=== PATIENT | female | born 1995 | race Two or more races ===

== ENCOUNTER 2024-08-22 15:54 | Observation (INO) | payer MEDICAID, OTHER ==
[~2024-08-22] VITALS: Ht 154.9 cm; Wt 54.4 kg
--- NOTE | 2024-08-22 16:45 | DVH ---
LIMITED OB ULTRASOUND > 14 WKS: HISTORY: abd pain TECHNIQUE: Multiple real-time grayscale images of the gravid uterus with duplex Doppler color flow an d M-mode spectral analysis. TRANSDUCER: Transabdominal FINDINGS: IUP single live fetus at 27 weeks 4 days based on composite averages of the BPD, head circumference, abdominal circumference and femur length Estimated weight not calculated heart rate 150 beats per minute MVP: 4.2 cm Cervix 3.01 cm Cephalic Presentation Anterior Grade 1 Placenta without previa or abruption. IMPRESSION: 1. IUP single live fetus at 27 weeks 4 days AUA corresponding to an BRENNA of 11/17/2024. 2. FHR: 150 beats per minute
[2024-08-22] MEDS: TERBUTALINE SULFATE 1 MG/ML 1ML VIAL SC SCH (17:23)
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
== END 2024-08-22 17:52 | disposition home or self-care (01) ==
LOC: LDRP 15:54
PROVIDERS: ADMIT Obstetrics & Gynecology; ATTEND Obstetrics & Gynecology
DX: O60.02 Preterm labor without delivery, second trimester (principal); Y08.89XA Assault by other specified means, initial encounter; Y93.89 Activity, other specified; Y92.89 Other specified places as the place of occurrence of the external cause; Y99.8 Other external cause status; Z3A.27 27 weeks gestation of pregnancy
CPT/HCPCS: 59025; 76815; 81002; 96372; G0378; J3105

== ENCOUNTER 2024-10-08 11:15 | Observation (INO) | payer MEDICAID ==
[2024-10-08] MEDS ORDERED: PREN-96 PO (12:50)
--- NOTE | 2024-10-08 13:00 | DVH ---
CLINICAL HISTORY: nuchal cord COMPARISON: Prior ultrasound dated 08/22/2024 TECHNIQUE: biophysical profile was performed. Transabdominal sonographic images of the fetus we re obtained. FINDINGS: The fetus is in cephalic position. heart rate measures 124 BPM. Amniotic fluid index measures 17.1 cm. The placenta is earlier in position without evidence of previa or abruption. Bellows Tester ior accessory placenta also noted. No nuchal cord visualized. BPP profile is an overall score of 8/8, with 2/2 points for breathing, with at least one episode of breathing over a 30 second duration during a 30 minute observation, 2/2 points for m ovements, with 3 or more discrete body or limb movements, 2/2 points for tone, with one or more episodes of extremity extension with return to flexion, or opening and closing of hand, and 2/ 2 points for amniotic fluid, with at least 1 pocket of amniotic fluid that measures 2 cm in 2 perpend icular planes. IMPRESSION: 1. BPP score of 8/8. No nuchal cord visualized. 2. Anterior placenta with smaller posterior accessory placenta
--- NOTE | 2024-10-09 13:11 | DVHDS2 ---
Physician Discharge Progress N Final Diagnosis: NUCHAL [id number] Operations or Procedures: Operations or Procedures NST 34 WKS,SONO Condition on Discharge: Good Disposition: Home Discharge Instructions: Diet: Regular Activity: No Restrictions, As Tolerated Medications: NA Follow Up Care: Specialist: 1W Discharge Statement: "Patient was advised to return to the ER or call 911 if any headaches, dizziness, shortness of breath, chest pain, abdominal pain, bleeding, fevers, or worsening of medical condition. Patient was counseled about treatment plan, medications, possible side effects, patientverbalized understanding. All questions were answered to the best of my ability. This discharge took greater then 30 minutes in planning, reviewing documentation , counseling the patient, and discussing with other team members." Visit Coding OBGYN Date of Service: Oct 09, 2024 Billing Provider: ALONZO GUERRERO DO PORTABLE MACHINE SANDER Common Visit Codes: [id number] INP/OBS CARE (HIGH) PORTABLE MACHINE SANDER Procedure Codes: 32023-85- NON-STRESS TEST ALONZO GUERRERO DO Oct 09, 2024 13:11
== END 2024-10-08 13:02 | disposition home or self-care (01) ==
LOC: LDRP 11:15 → UNDOADMOB 11:15 → LDRP 11:27
PROVIDERS: ADMIT Obstetrics & Gynecology; ATTEND Obstetrics & Gynecology
DX: O69.81X0 Labor and delivery complicated by cord around neck, without compression, not applicable or unspecified (principal); Z3A.34 34 weeks gestation of pregnancy; Z79.899 Other long term (current) drug therapy
CPT/HCPCS: 59025; 76819; 81002; 94760; G0378

== ENCOUNTER 2024-11-17 06:44 | Inpatient (IN) | payer MEDICAID ==
[~2024-11-17] VITALS: Ht 157.5 cm; Wt 57.2 kg
[~2024-11-17 06:44] MED LIST: PREN-96 PO
[2024-11-17] MEDS ORDERED: miSOPROStol 50 MCG per PRE-CUT 1/2 TAB PO PRN (07:30)
[2024-11-17] MEDS ORDERED: BUTORPHANOL TARTRATE 2 MG/1 ML VIAL IV PRN ×2 (07:30)
--- NOTE | 2024-11-17 07:54 | DVHHP2 ---
OB CC & HPI Date Date of Admission: November 17, 2024 Patient Identification: : 1 Para: 0 EDC: November 17, 2024 EGA: 40.0wks Chief Complaints: Reason for admission: induction of labor Indication for induction: other (term ) History of Present Complaints 29yo IUP@40.0wks presents for scheduled IOL for term . Reports tightening of abdomen occasionally, but denies uterine cramping. Denies Ucs/LOF/VB/ROCHE/vision changes/RUQ pain. Endorses +FM. PNC: Routine PNC with Dr. Ramirez at [facility], adequate visits, PNC uncomplicated. HgA1C 4.9%, dating based on 9wk sono not c/w LMP. GBS positive. Past Medical History Cardiac: No pertinent Hx Pulmonary: No pertinent Hx Central Nervous System: No pertinent Hx GI: No pertinent Hx Hemotology/Oncology: No pertinent Hx Hepatobiliary: No pertinent Hx Psychiatric: No pertinent Hx Musculoskeletal: No pertinent Hx Rheumotologic: No pertinent Hx Infectious Disease: No peritnent Hx ENT: No pertinent Hx Renal/: Other (endometrosis) Endocrine: No pertinent Hx Dermatology: No pertinent Hx Past Surgical History: Other (surgery to remove endometrial scarring) OB History OB History Care: Good Care Ultrasounds: Normal mid trimester US Obstetrical Complications: None Medical Complications: None Allergies: Coded Allergies: NO KNOWN ALLERGIES (Unverified , 08/22/24) Home Meds Reported Medications Vit W/ Ferrous Fumara ( One Daily) Daily Tab, 1 TAB PO DAILY, #90 TAB 3 Refills 10/08/24 Current Medications Current Medications Medications (Trade) Dose Ordered Sig/Marshal Route PRN Reason Start Time Stop Time Status Last Admin Lactated Ringer's 1,000 ml @ 125 mls/hr Q8H IV 11/17/24 07:30 Penicillin G Potassium 7021799 units/Dextrose 50 ml @ 100 mls/hr Q4H IV 11/17/24 11:30 Witch Libby (Tucks) 1 pad PRN PRN TOP PERINEAL AREA DISCOMFORT 11/17/24 07:30 Sodium Lauryl Sulfate (Phisoderm) 240 ml PRN PRN TOP PERINEAL AREA DISCOMFORT 11/17/24 07:30 Benzocaine (Dermoplast) 1 applic PRN PRN TOP PERINEAL AREA DISCOMFORT 11/17/24 07:30 Butorphanol Tartrate (Stadol Injection) 1 mg Q4HPRN PRN IV MODERATE PAIN (4-6 PAIN SCALE) 11/17/24 07:30 Butorphanol Tartrate (Stadol Injection) 2 mg Q4HPRN PRN IV SEVERE PAIN (7-10 PAIN SCALE) 11/17/24 07:30 Misoprostol (Cytotec) 50 mcg Q4HPRN PRN PO CERVICAL RIPENING 11/17/24 07:30 Lidocaine HCl (Xylocaine) 20 ml ONCE PRN IJ PERINEAL AREA DISCOMFORT 11/17/24 07:30 Family & Social History Family/Social History Past Family/Social History: denies Blood Type: O+ Rubella: immune RPR/VDRL: Negative GBS Status: Positive HBsAG: Negative Review of Systems Constitutional: No symptom reported Ears, Nose, & Throat: No symptom reported Eyes: No symptom reported Pulmonary/Respiratory: No symptom reported Cardiovascular: No symptom reported Gastrointestinal: No symptom reported Genitourinary: No symptom reported Musculoskeletal: No symptom reported Skin: No symptom reported Psychiatric: No symptom reported Endocrine: No symptom reported Hemotologic/Lymphatic: No symptom reported OB Admission Exam Physical Exam Vitals: O: VSS, see CPN EFW by sono today: 3549g, vertex, anterior placenta SVE - 4/70/-2, membrane sweep done with pts consent HEENT: TMs Normal, Fontanelles Normal, Nasal Mucosa Normal, Eyes non-injected, Oropharynx Normal, PERRLA, Moist Membranes, EOMI Heart: Rhythm Normal Lungs: Clear Abdomen: Gravid Extremities: Normal Reflexes: Normal Membranes: Intact Heart Rate: 130's Accelerations: Accelerations Present Decelerations: No Decelerations Freight Booker Variability: Average (6-25) Frequency of Contractions: q2-6 min Intensity: Mild OB Plan Plan Admitting Diagnosis: Induction of labor Plan: Induction Induction Methd: Pitocin protocol (membrane sweep) Other Plan: A: 29yo IUP@40.0wks Induction of Labor Category I EFM Intact Membranes GBS positive P: Admit to L&D Informed consent obtained Discussed risks, benefits, alternatives of IOL with IV pitocin with pt. Pt agrees to POC. Start IV PCN for GBS treatment. monitoring per order Routine labs ordered Pain mgmt PRN Frequent position changes in and out of bed encouraged Limit SVE unless necessary Intrauterine resuscitation PRN Anticipate CNM will consult with Dr. Ramirez PRN Visit Coding OBGYN Date of Service: November 17, 2024 Billing Provider: KENDY VERDUZCO CNM REGISTRY NURSE Common Visit Codes: [id number] INP/OBS CARE (MOD) REGISTRY NURSE Procedure Codes: 04082-68- NON-STRESS TEST KENDY VERDUZCO CNM November 17, 2024 07:54
[2024-11-17] MEDS ORDERED: TERBUTALINE SULFATE 1 MG/ML 1ML VIAL SC PRN (08:00)
--- NOTE | 2024-11-17 08:22 | DVH ---
LIMITED OB ULTRASOUND > 14 WKS: HISTORY: EFW TECHNIQUE: Multiple real-time grayscale images of the gravid uterus with duplex Doppler color flow an d M-mode spectral analysis. TRANSDUCER: Transabdominal. FINDINGS: IUP single live fetus at 38 weeks 1 day based on composite averages of the BPD, head circumference, a bdominal circumference and femur length Estimated weight 3549 grams heart rate 131 beats per minute VICKEY 10.7 cm Cervix not well visualized. Cephalic Presentation Anterior Placenta without previa or abruption. IMPRESSION: IUP single live fetus at 38 weeks 1 day AUA corresponding to an BRENNA of 11/30/2024
[2024-11-17 09:01] LABS: Urine Bacteria None Seen /hpf (None Seen)
[2024-11-17 09:07] LABS: Basophils # (auto) 0.1 10 ^3/uL (0-0.2); Basophils % (auto) 0.9 % (0.0-2.0); Eosinophils # (auto) 0.1 10 ^3/uL (0-0.8); Eosinophils % (auto) 0.6 % (0.0-7.0); Hemoglobin 14.5 g/dL (12.2-16.2); Lymphocytes # (auto) 1.6 10 ^3/uL (0.4-5.4); Lymphocytes % (auto) 16.7 % (10.0-50.0); Mean Corpuscular Hemoglobin 31.6 pg (28.0-32.0); Mean Corpuscular Hgb Conc. 34.4 g/dL (32.0-36.0); Mean Corpuscular Volume 91.7 fL (80.0-100.0); Monocytes # (auto) 0.8 10 ^3/uL (0-1.3); Neutrophils # (auto) 7.2 10 ^3/uL (1.6-8.6); Neutrophils % (auto) 73.8 % (37.0-80.0); Nucleated Red Blood Cells % 0.5 %; Platelet Count (auto) 191 10^3/uL (140-450); Red Blood Cells 4.58 10^6/uL (4.0-5.20); Red Cell Distribution Width 13.7 % (11.8-14.3); White Blood Cell 9.8 10^3/uL (4.4-10.8)
[2024-11-17 09:10] LABS: Urine Blood Negative /uL (Negative); Urine Clarity Turbid (Clear); Urine Color Light-Yellow (Yellow); Urine Protein, UAD Negative (Negative); Urine Specific Gravity 1.012 (1.001-1.035); Urine Squamous Epithelial Cell FEW /hpf (<5); Urine Urobilinogen Normal (Negative); Urine WBC 39 /HPF (0-5); Urine pH 5.5 (5.0-9.0)
[2024-11-17 09:22] LABS: INR 0.89 (0.9-1.15); Partial Thromboplastin Time 26.6 SEC (24.5-34.5); Prothrombin Time 9.5 sec (9.3-11.8)
[2024-11-17 09:23] LABS: Amphetamine Screen, Urine Neg (NEGATIVE); Barbiturate Scree,Urine Neg (NEGATIVE); Benzodiazephine Screen, Urine Neg (NEGATIVE); Cannabinoid Screen, Urine Neg (NEGATIVE); Cocaine Screen, Urine Neg (NEGATIVE); Opiate Scree,Urine Neg (NEGATIVE); Phencyclidine Screen, Urine Neg (NEGATIVE)
[2024-11-17 09:25] LABS: Alanine Aminotransferase 23 U/L (7-40); Albumin 3.9 g/dL (3.2-4.8); Anion Gap 10 (5-15); Aspartate Aminotransferase 29 U/L (13-40); BUN/Creatinine Ratio 18.1 (10.0-20.0); Blood Urea Nitrogen 13 mg/dL (9-23); Calcium 9.6 mg/dL (8.7-10.4); Carbon Dioxide 21 mmol/L (20-31); Chloride 107 mmol/L (98-107); Glucose 77 mg/dL (74-106); Sodium 138 mmol/L (136-145); Total Protein 6.4 g/dL (5.7-8.2)
[2024-11-17 09:26] LABS: Bilirubin, Total 0.8 mg/dL (0.2-1.0)
[2024-11-17 09:27] LABS: Alkaline Phosphatase 146 U/L (46-116)
[2024-11-17] MEDS: DERMOPLAST 60ML BOTTLE TOP PRN (10:01)
[2024-11-17] MEDS: PHISODERM TOP SOLN 240ML BTL TOP PRN (10:01)
[2024-11-17] MEDS: WITCH HAZEL-GLYCERIN PAD TOP PRN (10:01)
[2024-11-17] MEDS: PENICILLIN G POTASSIUM 2,500,000 UNITS in D5W 5% 50 ML IV SCH (11:30)
[2024-11-17] MEDS: PENICILLIN G POT 5MIL/D5 50ML 50 ML IV ONE (11:32)
[2024-11-17] MEDS: LACTATED RINGER'S 1,000 ML IV ONE (11:33)
[2024-11-17] MEDS: LACTATED RINGER'S 1,000 ML IV SCH (11:33)
--- NOTE | 2024-11-17 13:07 | DVHPN2 ---
CNM Labor Progress Note Date and Time Seen Date Seen: November 17, 2024 Time Seen: 12:45 Subjective Patient reports: Feels better Subjective Comment Pt resting in bed post epidural. Pt reports feeling comfortable. Objective Vital Signs VSS, see chart Monitoring Method Monitoring Method: External Heart Rate Heart Rate Baseline: 130 Heart Rate Variability: Moderate Presence of FHR Accelerations: Yes Presence of FHR Decelerations: No Changes in Trends of Patterns: No Are all 5 Components of the FH: Yes Contractions Contractions Frequency: Other (q1-3minutes) Duration of Contraction: 60 Contractions Intensity: Moderate Contractions Resting Tone: Relaxed Membranes Membranes: Intact Vaginal Exam Vag Exam Deferred: Yes (Primary RN VE exam done at 1114: 4/70/-1) Vaginal Exam Presentation: VTX Vaginal Exam Show: Small Medications Medications - Pitocin: Yes (2 mU/hr) Medication - Epidural: Yes Lab Results Lab Results Current Medications Medications (Trade) Dose Ordered Sig/Marshal Start Time Stop Time Status Last Admin Dose Admin Lactated Ringer's 1,000 ml @ 125 mls/hr Q8H 11/17/24 07:30 11/17/24 11:33 125 MLS/HR Penicillin G Potassium 50 ml @ 100 mls/hr ONCE ONCE 11/17/24 07:30 11/17/24 07:59 DC 11/17/24 11:32 100 MLS/HR Penicillin G Potassium [id number] units/Dextrose 50 ml @ 100 mls/hr Q4H 11/17/24 11:30 Witch Libby (Tucks) 1 pad PRN PRN 11/17/24 07:30 11/17/24 10:01 1 PAD Sodium Lauryl Sulfate (Phisoderm) 240 ml PRN PRN 11/17/24 07:30 11/17/24 10:01 240 ML Benzocaine (Dermoplast) 1 applic PRN PRN 11/17/24 07:30 11/17/24 10:01 1 APPLIC Butorphanol Tartrate (Stadol Injection) 1 mg Q4HPRN PRN 11/17/24 07:30 Butorphanol Tartrate (Stadol Injection) 2 mg Q4HPRN PRN 11/17/24 07:30 Misoprostol (Cytotec) 50 mcg Q4HPRN PRN 11/17/24 07:30 11/17/24 07:53 DC Lidocaine HCl (Xylocaine) 20 ml ONCE PRN 11/17/24 07:30 Oxytocin 1,000 ml @ 6 ml/hr Q24H 11/17/24 08:00 Terbutaline Sulfate (Brethine Inj) 0.25 mg ONCE PRN 11/17/24 08:00 Oxytocin 500 ml @ 999 mls/hr Q31M ONCE 11/17/24 08:00 11/17/24 08:30 DC Oxytocin 500 ml @ 125 mls/hr Q4H ONCE 11/17/24 08:30 11/17/24 12:29 DC Lactated Ringer's 1,000 ml @ 1,000 mls/hr Q1H ONCE 11/17/24 09:15 11/17/24 10:14 DC 11/17/24 11:33 1,000 MLS/HR Naloxone HCl (Narcan) 0.2 mg PRN ONCE 11/17/24 09:15 11/17/24 09:20 DC Ephedrine Sulfate (ePHEDrine SULFATE) 10 mg PRN ONCE 11/17/24 09:15 11/17/24 09:20 DC Laboratory Tests Test 11/17/24 08:36 11/17/24 07:30 Range/Units White Blood Count 9.8 4.4-10.8 10^3/uL Red Blood Count 4.58 4.0-5.20 10^6/uL Hemoglobin 14.5 12.2-16.2 g/dL Hematocrit 42.0 36.0-46.0 % Mean Corpuscular Volume 91.7 80.0-100.0 fL Mean Corpuscular Hemoglobin 31.6 28.0-32.0 pg Mean Corpuscular Hemoglobin Concent 34.4 32.0-36.0 g/dL Red Cell Distribution Width 13.7 11.8-14.3 % Platelet Count 191 140-450 10^3/uL Mean Platelet Volume 9.3 6.9-10.8 fL Neutrophils (%) (Auto) 73.8 37.0-80.0 % Lymphocytes (%) (Auto) 16.7 10.0-50.0 % Monocytes (%) (Auto) 8.0 0.0-12.0 % Eosinophils (%) (Auto) 0.6 0.0-7.0 % Basophils (%) (Auto) 0.9 0.0-2.0 % Neutrophils # (Auto) 7.2 1.6-8.6 10 ^3/uL Lymphocytes # (Auto) 1.6 0.4-5.4 10 ^3/uL Monocytes # (Auto) 0.8 0-1.3 10 ^3/uL Eosinophils # (Auto) 0.1 0-0.8 10 ^3/uL Basophils # (Auto) 0.1 0-0.2 10 ^3/uL Nucleated Red Blood Cells 0.5 % Prothrombin Time 9.5 9.3-11.8 sec Prothrombin Time INR 0.89 L 0.9-1.15 Activated Partial Thromboplast Time 26.6 24.5-34.5 SEC Sodium Level 138 136-145 mmol/L Potassium Level 4.0 3.5-5.1 mmol/L Chloride Level 107 98-107 mmol/L Carbon Dioxide Level 21 20-31 mmol/L Anion Gap 10 5-15 Blood Urea Nitrogen 13 9-23 mg/dL Creatinine 0.72 0.550-1.02 mg/dL Glomerular Filtration Rate Calc 117 >90 mL/min BUN/Creatinine Ratio 18.1 10.0-20.0 Serum Glucose 77 74-106 mg/dL Calcium Level 9.6 8.7-10.4 mg/dL Total Bilirubin 0.8 0.2-1.0 mg/dL Aspartate Amino Transferase (AST) 29 13-40 U/L Alanine Aminotransferase (ALT) 23 7-40 U/L Alkaline Phosphatase 146 H 46-116 U/L Total Protein 6.4 5.7-8.2 g/dL Albumin 3.9 3.2-4.8 g/dL Treponema pallidum Antibody Non-reactive Negative Urine Color Light-yellow Yellow Urine Clarity Turbid H Clear Urine pH 5.5 5.0-9.0 Urine Specific [place] 1.012 1.001-1.035 Urine Protein Negative Negative Urine Ketones Negative Negative Urine Blood Negative Negative /uL Urine Nitrite Negative Negative Urine Bilirubin Negative Negative Urine Urobilinogen Normal Negative mg/dL Urine Leukocyte Esterase 3+ Negative /uL Urine RBC <1 0 - 4 /hpf Urine Microscopic WBC 39 H 0-5 /HPF Urine Squamous Epithelial Cells Few <5 /hpf Urine Bacteria None seen None Seen /hpf Urine Glucose Normal Normal mg/dL Urine Opiates Screen Neg NEGATIVE Urine Fentanyl Screen Neg NEGATIVE Urine Barbiturates Screen Neg NEGATIVE Urine Phencyclidine Screen Neg NEGATIVE Urine Amphetamines Screen Neg NEGATIVE Urine Benzodiazepines Screen Neg NEGATIVE Urine Cocaine Screen Neg NEGATIVE Urine Cannabinoids Screen Neg NEGATIVE Assessment Assessment 29yo IUP@40.0wks Induction of Labor Category I EFM Intact Membranes GBS positive Plan Plan P: Continue IOL with IV pitocin per protocol Continue IV PCN for GBS treatment. Continue monitoring Pain mgmt via epidural Frequent position changes in bed encouraged Limit SVE unless necessary Intrauterine resuscitation PRN Anticipate CNM will consult with Dr. Ramirez PRN Plan discussed with: Patient, Spouse Visit Coding OBGYN Date of Service: November 17, 2024 Billing Provider: KENDY VERDUZCO CNM CHRONIC SPECIALIST Common Visit Codes: [id number] INP/OBS CARE(MOD) DENISSE MOTA MDWF November 17, 2024 13:07
[2024-11-17] MEDS: ROPIVACAINE HCL 200 ML ONE (15:51)
[2024-11-17] MEDS: LACT. RINGERS/OXYTOCIN 20UNITS 1,000 ML IV SCH (15:52)
--- NOTE | 2024-11-17 20:43 | DVHPN2 ---
CNM Labor Progress Note Date and Time Seen Date Seen: November 17, 2024 Time Seen: 20:20 Subjective Patient reports: No new complaints Subjective Comment Pt resting comfortably with epidural. Objective Vital Signs VSS, see chart Monitoring Method Monitoring Method: External Heart Rate Heart Rate Baseline: 120 Heart Rate Variability: Moderate Presence of FHR Accelerations: Yes Presence of FHR Decelerations: No Changes in Trends of Patterns: No Are all 5 Components of the FH: Yes Contractions Contractions Frequency: Other (q1-3min) Duration of Contraction: 60 Contractions Intensity: Moderate Contractions Resting Tone: Relaxed Membranes Membranes: Ruptured (AROM at 2022 w/ patient consent; copious amounts of clear fluid) Amniotic Fluid Color: Clear Vaginal Exam Vag Exam Deferred: No Vaginal Exam Dilation: 6 Vaginal Exam Effacement: 80 Vaginal Exam Station: -2 Vaginal Exam Presentation: VTX Vaginal Exam Show: Small Medications Medications - Pitocin: Yes (5mU/hour) Medication - Epidural: Yes Lab Results Lab Results Current Medications Medications (Trade) Dose Ordered Sig/Marshal Start Time Stop Time Status Last Admin Dose Admin Lactated Ringer's 1,000 ml @ 125 mls/hr Q8H 11/17/24 07:30 11/17/24 15:49 125 MLS/HR Penicillin G Potassium 50 ml @ 100 mls/hr ONCE ONCE 11/17/24 07:30 11/17/24 07:59 DC 11/17/24 11:32 100 MLS/HR Penicillin G Potassium [id number] units/Dextrose 50 ml @ 100 mls/hr Q4H 11/17/24 11:30 11/17/24 15:47 100 MLS/HR Lexy Souza (Milesckleonarda) 1 pad PRN PRN 11/17/24 07:30 11/17/24 10:01 1 PAD Sodium Lauryl Sulfate (Phisoderm) 240 ml PRN PRN 11/17/24 07:30 11/17/24 10:01 240 ML Benzocaine (Dermoplast) 1 applic PRN PRN 11/17/24 07:30 11/17/24 10:01 1 APPLIC Butorphanol Tartrate (Stadol Injection) 1 mg Q4HPRN PRN 11/17/24 07:30 Butorphanol Tartrate (Stadol Injection) 2 mg Q4HPRN PRN 11/17/24 07:30 Misoprostol (Cytotec) 50 mcg Q4HPRN PRN 11/17/24 07:30 11/17/24 07:53 DC Lidocaine HCl (Xylocaine) 20 ml ONCE PRN 11/17/24 07:30 Oxytocin 1,000 ml @ 6 ml/hr Q24H 11/17/24 08:00 11/17/24 15:52 6 ML/HR Terbutaline Sulfate (Brethine Inj) 0.25 mg ONCE PRN 11/17/24 08:00 Oxytocin 500 ml @ 999 mls/hr Q31M ONCE 11/17/24 08:00 11/17/24 08:30 DC Oxytocin 500 ml @ 125 mls/hr Q4H ONCE 11/17/24 08:30 11/17/24 12:29 DC Lactated Ringer's 1,000 ml @ 1,000 mls/hr Q1H ONCE 11/17/24 09:15 11/17/24 10:14 DC 11/17/24 11:33 1,000 MLS/HR Naloxone HCl (Narcan) 0.2 mg PRN ONCE 11/17/24 09:15 11/17/24 09:20 DC Ephedrine Sulfate (ePHEDrine SULFATE) 10 mg PRN ONCE 11/17/24 09:15 11/17/24 09:20 DC Laboratory Tests Test 11/17/24 08:36 11/17/24 07:30 Range/Units White Blood Count 9.8 4.4-10.8 10^3/uL Red Blood Count 4.58 4.0-5.20 10^6/uL Hemoglobin 14.5 12.2-16.2 g/dL Hematocrit 42.0 36.0-46.0 % Mean Corpuscular Volume 91.7 80.0-100.0 fL Mean Corpuscular Hemoglobin 31.6 28.0-32.0 pg Mean Corpuscular Hemoglobin Concent 34.4 32.0-36.0 g/dL Red Cell Distribution Width 13.7 11.8-14.3 % Platelet Count 191 140-450 10^3/uL Mean Platelet Volume 9.3 6.9-10.8 fL Neutrophils (%) (Auto) 73.8 37.0-80.0 % Lymphocytes (%) (Auto) 16.7 10.0-50.0 % Monocytes (%) (Auto) 8.0 0.0-12.0 % Eosinophils (%) (Auto) 0.6 0.0-7.0 % Basophils (%) (Auto) 0.9 0.0-2.0 % Neutrophils # (Auto) 7.2 1.6-8.6 10 ^3/uL Lymphocytes # (Auto) 1.6 0.4-5.4 10 ^3/uL Monocytes # (Auto) 0.8 0-1.3 10 ^3/uL Eosinophils # (Auto) 0.1 0-0.8 10 ^3/uL Basophils # (Auto) 0.1 0-0.2 10 ^3/uL Nucleated Red Blood Cells 0.5 % Prothrombin Time 9.5 9.3-11.8 sec Prothrombin Time INR 0.89 L 0.9-1.15 Activated Partial Thromboplast Time 26.6 24.5-34.5 SEC Sodium Level 138 136-145 mmol/L Potassium Level 4.0 3.5-5.1 mmol/L Chloride Level 107 98-107 mmol/L Carbon Dioxide Level 21 20-31 mmol/L Anion Gap 10 5-15 Blood Urea Nitrogen 13 9-23 mg/dL Creatinine 0.72 0.550-1.02 mg/dL Glomerular Filtration Rate Calc 117 >90 mL/min BUN/Creatinine Ratio 18.1 10.0-20.0 Serum Glucose 77 74-106 mg/dL Calcium Level 9.6 8.7-10.4 mg/dL Total Bilirubin 0.8 0.2-1.0 mg/dL Aspartate Amino Transferase (AST) 29 13-40 U/L Alanine Aminotransferase (ALT) 23 7-40 U/L Alkaline Phosphatase 146 H 46-116 U/L Total Protein 6.4 5.7-8.2 g/dL Albumin 3.9 3.2-4.8 g/dL Treponema pallidum Antibody Non-reactive Negative Urine Color Light-yellow Yellow Urine Clarity Turbid H Clear Urine pH 5.5 5.0-9.0 Urine Specific [place] 1.012 1.001-1.035 Urine Protein Negative Negative Urine Ketones Negative Negative Urine Blood Negative Negative /uL Urine Nitrite Negative Negative Urine Bilirubin Negative Negative Urine Urobilinogen Normal Negative mg/dL Urine Leukocyte Esterase 3+ Negative /uL Urine RBC <1 0 - 4 /hpf Urine Microscopic WBC 39 H 0-5 /HPF Urine Squamous Epithelial Cells Few <5 /hpf Urine Bacteria None seen None Seen /hpf Urine Glucose Normal Normal mg/dL Urine Opiates Screen Neg NEGATIVE Urine Fentanyl Screen Neg NEGATIVE Urine Barbiturates Screen Neg NEGATIVE Urine Phencyclidine Screen Neg NEGATIVE Urine Amphetamines Screen Neg NEGATIVE Urine Benzodiazepines Screen Neg NEGATIVE Urine Cocaine Screen Neg NEGATIVE Urine Cannabinoids Screen Neg NEGATIVE Assessment Assessment 29yo IUP@40.0wks Induction of Labor Category I EFM Ruptured amniotic Membranes GBS positive Plan Plan P: Continue IOL with IV pitocin per protocol Continue IV PCN for GBS treatment Continue monitoring Pain mgmt via epidural Frequent position changes in bed encouraged Limit SVE unless necessary Intrauterine resuscitation PRN Anticipate CNM will consult with Dr. Ramirez PRN Plan discussed with: Patient, Spouse Visit Coding OBGYN Date of Service: November 17, 2024 Billing Provider: KENDY VERDUZCO CNM SNAKER DRIVING HORSES Common Visit Codes: [id number] INP/OBS CARE(MOD) DENISSE MOTA MDWF November 17, 2024 20:43
[2024-11-18] VITALS (17 sets, daily range): BP systolic 94–126; BP diastolic 52–97; PULSE 104–127; RESP 14–20; TEMP 97.9–99.2; O2SAT 90–100
[2024-11-18] MEDS: ROPIVACAINE HCL 200 ML ONE (02:30)
[2024-11-18] MEDS ORDERED: ONDANSETRON HCL 4 MG/2 ML VIAL IV PRN ×3 (02:30→13:30)
--- NOTE | 2024-11-18 02:30 | DVHPN2 ---
CNM Labor Progress Note Date and Time Seen Date Seen: November 18, 2024 Time Seen: 02:10 Subjective Subjective Comment Pt feels rectal pressure with UCs and having N/V/shakes. Objective Vital Signs VSS, see CPN Monitoring Method Monitoring Method: External Heart Rate Heart Rate Baseline: 120 Heart Rate Variability: Moderate Presence of FHR Accelerations: Yes Presence of FHR Decelerations: No Changes in Trends of Patterns: No Are all 5 Components of the FH: Yes Contractions Contractions Frequency: Other (q3-4 min) Duration of Contraction: 100 Contractions Intensity: Moderate Contractions Resting Tone: Relaxed Membranes Membranes: Ruptured Amniotic Fluid Color: Clear Vaginal Exam Vag Exam Deferred: No Vaginal Exam Dilation: 7 Vaginal Exam Effacement: 80 Vaginal Exam Station: -1 Vaginal Exam Presentation: VTX Vaginal Exam Show: Moderate Medications Medications - Pitocin: Yes (2 mu) Medication - Epidural: Yes Lab Results Lab Results Current Medications Medications (Trade) Dose Ordered Sig/Marshal Start Time Stop Time Status Last Admin Dose Admin Lactated Ringer's 1,000 ml @ 125 mls/hr Q8H 11/17/24 07:30 11/17/24 23:17 125 MLS/HR Penicillin G Potassium 50 ml @ 100 mls/hr ONCE ONCE 11/17/24 07:30 11/17/24 07:59 DC 11/17/24 11:32 100 MLS/HR Penicillin G Potassium [id number] units/Dextrose 50 ml @ 100 mls/hr Q4H 11/17/24 11:30 11/18/24 01:01 100 MLS/HR Lexy Souza (Tucks) 1 pad PRN PRN 11/17/24 07:30 11/17/24 10:01 1 PAD Sodium Lauryl Sulfate (Phisoderm) 240 ml PRN PRN 11/17/24 07:30 11/17/24 10:01 240 ML Benzocaine (Dermoplast) 1 applic PRN PRN 11/17/24 07:30 11/17/24 10:01 1 APPLIC Butorphanol Tartrate (Stadol Injection) 1 mg Q4HPRN PRN 11/17/24 07:30 Butorphanol Tartrate (Stadol Injection) 2 mg Q4HPRN PRN 11/17/24 07:30 Misoprostol (Cytotec) 50 mcg Q4HPRN PRN 11/17/24 07:30 11/17/24 07:53 DC Lidocaine HCl (Xylocaine) 20 ml ONCE PRN 11/17/24 07:30 Oxytocin 1,000 ml @ 6 ml/hr Q24H 11/17/24 08:00 11/17/24 15:52 6 ML/HR Terbutaline Sulfate (Brethine Inj) 0.25 mg ONCE PRN 11/17/24 08:00 Oxytocin 500 ml @ 999 mls/hr Q31M ONCE 11/17/24 08:00 11/17/24 08:30 DC Oxytocin 500 ml @ 125 mls/hr Q4H ONCE 11/17/24 08:30 11/17/24 12:29 DC Lactated Ringer's 1,000 ml @ 1,000 mls/hr Q1H ONCE 11/17/24 09:15 11/17/24 10:14 DC 11/17/24 11:33 1,000 MLS/HR Naloxone HCl (Narcan) 0.2 mg PRN ONCE 11/17/24 09:15 11/17/24 09:20 DC Ephedrine Sulfate (ePHEDrine SULFATE) 10 mg PRN ONCE 11/17/24 09:15 11/17/24 09:20 DC Laboratory Tests Test 11/17/24 08:36 11/17/24 07:30 Range/Units White Blood Count 9.8 4.4-10.8 10^3/uL Red Blood Count 4.58 4.0-5.20 10^6/uL Hemoglobin 14.5 12.2-16.2 g/dL Hematocrit 42.0 36.0-46.0 % Mean Corpuscular Volume 91.7 80.0-100.0 fL Mean Corpuscular Hemoglobin 31.6 28.0-32.0 pg Mean Corpuscular Hemoglobin Concent 34.4 32.0-36.0 g/dL Red Cell Distribution Width 13.7 11.8-14.3 % Platelet Count 191 140-450 10^3/uL Mean Platelet Volume 9.3 6.9-10.8 fL Neutrophils (%) (Auto) 73.8 37.0-80.0 % Lymphocytes (%) (Auto) 16.7 10.0-50.0 % Monocytes (%) (Auto) 8.0 0.0-12.0 % Eosinophils (%) (Auto) 0.6 0.0-7.0 % Basophils (%) (Auto) 0.9 0.0-2.0 % Neutrophils # (Auto) 7.2 1.6-8.6 10 ^3/uL Lymphocytes # (Auto) 1.6 0.4-5.4 10 ^3/uL Monocytes # (Auto) 0.8 0-1.3 10 ^3/uL Eosinophils # (Auto) 0.1 0-0.8 10 ^3/uL Basophils # (Auto) 0.1 0-0.2 10 ^3/uL Nucleated Red Blood Cells 0.5 % Prothrombin Time 9.5 9.3-11.8 sec Prothrombin Time INR 0.89 L 0.9-1.15 Activated Partial Thromboplast Time 26.6 24.5-34.5 SEC Sodium Level 138 136-145 mmol/L Potassium Level 4.0 3.5-5.1 mmol/L Chloride Level 107 98-107 mmol/L Carbon Dioxide Level 21 20-31 mmol/L Anion Gap 10 5-15 Blood Urea Nitrogen 13 9-23 mg/dL Creatinine 0.72 0.550-1.02 mg/dL Glomerular Filtration Rate Calc 117 >90 mL/min BUN/Creatinine Ratio 18.1 10.0-20.0 Serum Glucose 77 74-106 mg/dL Calcium Level 9.6 8.7-10.4 mg/dL Total Bilirubin 0.8 0.2-1.0 mg/dL Aspartate Amino Transferase (AST) 29 13-40 U/L Alanine Aminotransferase (ALT) 23 7-40 U/L Alkaline Phosphatase 146 H 46-116 U/L Total Protein 6.4 5.7-8.2 g/dL Albumin 3.9 3.2-4.8 g/dL Treponema pallidum Antibody Non-reactive Negative Urine Color Light-yellow Yellow Urine Clarity Turbid H Clear Urine pH 5.5 5.0-9.0 Urine Specific [place] 1.012 1.001-1.035 Urine Protein Negative Negative Urine Ketones Negative Negative Urine Blood Negative Negative /uL Urine Nitrite Negative Negative Urine Bilirubin Negative Negative Urine Urobilinogen Normal Negative mg/dL Urine Leukocyte Esterase 3+ Negative /uL Urine RBC <1 0 - 4 /hpf Urine Microscopic WBC 39 H 0-5 /HPF Urine Squamous Epithelial Cells Few <5 /hpf Urine Bacteria None seen None Seen /hpf Urine Glucose Normal Normal mg/dL Urine Opiates Screen Neg NEGATIVE Urine Fentanyl Screen Neg NEGATIVE Urine Barbiturates Screen Neg NEGATIVE Urine Phencyclidine Screen Neg NEGATIVE Urine Amphetamines Screen Neg NEGATIVE Urine Benzodiazepines Screen Neg NEGATIVE Urine Cocaine Screen Neg NEGATIVE Urine Cannabinoids Screen Neg NEGATIVE Assessment Assessment 29yo IUP@40.1wks Induction of Labor Category I EFM Ruptured amniotic Membranes GBS positive Plan Plan RN to give pt zofran IV Continue IOL with IV pitocin per protocol Continue IV PCN for GBS treatment Continue monitoring Pain mgmt via epidural Frequent position changes in bed encouraged Limit SVE unless necessary Intrauterine resuscitation PRN Dr. Ramirez consulted, Anticipated Plan discussed with: Patient, Spouse, Other (family) Visit Coding OBGYN Date of Service: November 18, 2024 Billing Provider: KENDY VERDUZCO CNM STACK ATTENDANT Common Visit Codes: [id number] INP/OBS CARE(MOD) KENDY VERDUZCO CNM November 18, 2024 02:30
--- NOTE | 2024-11-18 08:47 | DVHPN2 ---
Chief Complaints Patient reports: No new complaints Nursing reports: No new complaints Objective Medications Current Medications Medications (Trade) Dose Ordered Sig/Marshal Route PRN Reason Start Time Stop Time Status Last Admin Ondansetron HCl (Zofran) 4 mg Q4HPRN PRN IV NAUSEA / VOMITING 11/18/24 02:30 Penicillin G Potassium [id number] units/Dextrose 50 ml @ 100 mls/hr Q4H IV 11/17/24 11:30 11/18/24 08:45 Others ve-10cm/0/100% Studies Laboratory Tests 11/17/24 08:36 Test 11/17/24 08:36 Range/Units Serum Glucose 77 74-106 mg/dL Ass/Plan Assessment labor Plan recieved pt at 7am from azy ,pt is compelet at zero station but not pushing well subseq pt is to labor down . Visit Coding OBGYN Date of Service: November 18, 2024 Billing Provider: ALONZO GUERRERO DO SNOWBLOWER MECHANIC Common Visit Codes: [id number] INP/OBS CARE(HIGH) SNOWBLOWER MECHANIC Procedure Codes: 62253-68- NON-STRESS TEST ALONZO GUERRERO DO November 18, 2024 08:47
[2024-11-18] MEDS ORDERED: fentaNYL CITRATE 100 MCG/2 ML VL ONE (11:52)
[2024-11-18] MEDS ORDERED: MIDAZOLAM HCL 2MG/2ML 2ml VIAL (1mg/ml) ONE (11:52)
[2024-11-18] MEDS ORDERED: MORPHINE SULF PF 5 MG/10 ML VIAL ONE (11:52)
[2024-11-18] MEDS ORDERED: LACT. RINGERS/OXYTOCIN 20UNITS 1,000 ML IV ONE (12:00)
[2024-11-18] MEDS: METHYLERGONOVINE MALEATE 0.2 MG/ML AMP IM ONE (12:09)
[2024-11-18] MEDS: ceFAZolin 2 GM/D5W50ml 50 ML IV ONE (12:10)
[2024-11-18] MEDS: CARBOPROST TROMETHAMINE 250 MCG/1ML VIAL IM ONE ×2 (12:21→12:50)
[2024-11-18] MEDS: TRANEXAMIC ACID 20 ML ONE (12:35)
[2024-11-18] MEDS: DIPHENOXYLATE W/ATROPINE 2.5 MG TAB ONE (12:52)
--- NOTE | 2024-11-18 13:02 | DVHHP ---
ADMIT DATE: 11/17/2024 CHIEF COMPLAINT: Arrest of descent, suspect CPD. HISTORY OF PRESENT ILLNESS: The patient is a 29-year-old woman presented with EDC on 11/17, estimated gestational age of 40 weeks, admitted for labor. The patient was initially scheduled for induction. However, she came in labor at 4:00 p.m. Subsequently, the patient was managed by Aussie, board worker. She received Cytotec and Pitocin, dilated to 10 cm; however, presenting part was at 0 station despite adequate contraction. Subsequently, the patient is being taken for primary secondary to CPD, arrest of descent. PAST MEDICAL HISTORY: None. PAST SURGICAL HISTORY: None. SOCIAL HISTORY: None. FAMILY HISTORY: None. OBSTETRIC AND GYNECOLOGIC HISTORY: GBS positive. Primary gravid. REVIEW OF SYSTEMS: Consistent with HPI. PHYSICAL EXAMINATION: VITAL SIGNS: Stable, afebrile. HEENT: Within normal limits. CARDIOVASCULAR: Regular rate and rhythm. LUNGS: Clear to auscultation. BREASTS: Symmetrical, no masses. ABDOMEN: Gravid. Positive heart, estimated weight 7+. PELVIC: 10 cm, 0 station. EXTREMITIES: No clubbing, cyanosis, or edema. IMPRESSION: * Intrauterine at 40 weeks. Arrest of descent. * Suspect CPD. PLAN: Primary low transverse incision. Informed consent obtained. Risks and complications of surgery including infection, bleeding, hematoma formation, injury to bowel, bladder, surrounding organ, possibility of DVT, pulmonary embolism, and risks of anesthesia discussed with the patient. Options reviewed. All the risks and complications discussed with the patient discussed with the patient. All questions answered. The patient fully understands. She wishes to proceed. DO JHONATAN Burnett/JAMES/SARIAH TID: [id number] RECEIPT: [id number]
[2024-11-18] MEDS: LIDOCAINE W/ EPINEPHRINE 1% 20ML VIAL ONE (13:05)
[2024-11-18] MEDS: BUPIVACAINE 0.5% P/F INJ 10 ML VIAL ONE (13:05)
[2024-11-18] MEDS ORDERED: DexAMETHasone SOD PHOS 10MG/1ML VIAL INJ IV PRN (13:30)
[2024-11-18] MEDS ORDERED: hydrALAZINE HCL 20 MG/ML VL IV PRN (13:30)
[2024-11-18] MEDS ORDERED: diphenhdrAMINE HCL 50 MG/1 ML VL IV PRN (13:30)
[2024-11-18] MEDS ORDERED: ePHEDrine SULFATE 50 MG/ML AMP IV PRN (13:30)
[2024-11-18] MEDS ORDERED: HYDROmorphone HCL 2 MG/ML VL/or syr IV PRN (13:30)
[2024-11-18] MEDS ORDERED: MIDAZOLAM HCL 2MG/2ML 2ml VIAL (1mg/ml) IV PRN (13:30)
[2024-11-18 13:42] LABS: Hematocrit 29.3 % (36.0-46.0); Hemoglobin 9.8 g/dL (12.2-16.2); Mean Corpuscular Hemoglobin 31.9 pg (28.0-32.0); Mean Corpuscular Hgb Conc. 33.3 g/dL (32.0-36.0); Mean Corpuscular Volume 95.8 fL (80.0-100.0); Platelet Count (auto) 186 10^3/uL (140-450); Red Blood Cells 3.06 10^6/uL (4.0-5.20); Red Cell Distribution Width 13.8 % (11.8-14.3)
[2024-11-18 13:49] LABS: White Blood Cell 36.5 10^3/uL (4.4-10.8)
[2024-11-18 13:58] LABS: Basophils % (manual) 0 (0.0-2.0); Blast Cells 0; Eosinophils % (manual) 0 (0-7); Metamyelocytes % 0; Myelocytes % 0; Promyelocytes % 0; Reactive Lymphocytes 0
[2024-11-18 14:11] LABS: Band Neutrophils % (manual) 5; Lymphocytes % (manual) 7 (10.0-50.0); Monocytes % (manual) 7 (0-12)
[2024-11-18 14:12] LABS: Platelet Estimate Adequate
--- NOTE | 2024-11-18 14:22 | DVHOP2 ---
Operative Report DATE OF OPERATION: 11/18/24 PREOPERATIVE DIAGNOSES: Term WITH ARREST OF DESCENT,SUSPECT CPD, POSTOPERATIVE DIAGNOSES: SAME,OP,UTERINE ATONY SURGEON: Janee Ramirez D.O./KVNG,INTRA OP CONSULT WITH DR GALLEGOS ANESTHESIOLOGIST: ARIES TYPE OF ANESTHESIA : EPIDURAL CONSENT: The patient was informed of the risks and benefits of the procedure. The patient was informed of the risks and benefits of the procedure. These include but are not limited to , complications of anesthesia, postoperative infection, incomplete relief of symptoms, recurrence of symptoms, damage to blood vessels, nerves and tendons, deep venous thrombosis, pulmonary embolism and possible need for repeat surgery in the future. FINDINGS: Baby [G] with Apgars of [8] and [9]. Grossly normal appearing tubes and ovaries.OP PROCEDURES: Primary low transverse section. PROCEDURE IN DETAIL: The patient was taken to the operating room. She already had an epidural in place. She was then placed in supine position with a leftward tilt. A Pfannenstiel skin incision was made 2 cm above the symphysis pubis. This incision was carried to the underlying layer of fascia. The fascia was nicked in the midline. The incision was extended laterally. The superior aspect of the fascial incision was grasped and elevated. The same procedure was done to the inferior aspect of the fascial incision. The rectus muscles were then in the midline. Peritoneum was identified and entered. Peritoneal incision was extended superiorly and inferiorly with good visualization of the bladder. Bladder blade was inserted. Vesicouterine peritoneum was identified and entered. Lower uterine segment was incised in a transverse fashion. The was delivered from vertex presentation. was baby [F] with Apgars [8] and 9]. Placenta was then removed manually. THERE WAS UTERINE ATNY AND EXTENSIVE BLEEDING FROM LOWER UTERINE SEGMENT EXTENSION FOR WHICH DR GALLEGOS WAS CALLED IN AND HE MANGED TO STOP BLEEING. Uterus was exteriorized and cleared of all clots and debris. The incision was repaired using 0 Vicryl in a double-layered fashion. No bleeding was noted. Uterus was then returned to the abdomen. The gutters were cleared off all clots and debris. Peritoneum was closed using 0 Vicryl, fascia was closed using 0 Maxon, and skin was closed using bhaksar. The patient tolerated the procedure well. She was taken to the recovery room in stable condition. ESTIMATED BLOOD LOSS: Estimated blood loss was noted to be 1500 mL. Visit Coding OBGYN Date of Service: November 18, 2024 Billing Provider: JANEE RAMIREZ DO HELPER SHEAR OPERATOR Common Visit Codes: [id number]/[id number] SAME DATE (HIGH) HELPER SHEAR OPERATOR Procedure Codes: [id number] DELIVERY ONLY JANEE RAMIREZ DO November 18, 2024 14:22
--- NOTE | 2024-11-18 14:26 | POSTOP ---
Post-Operative Note Post-Operative Note Preop Diagnosis TERM PREG IN LABOR WITH ARREST OIF DESCENT,SUSPECT CPD Postop Diagnosis: SAME,OP,UTERINE ATONY WHICH RESPONDED TO MEDICAL TREATMENT Operation performed PLTCS Specimen BBAY GIRL,APGARS 8-9,OP Anesthesia: Regional Anesthesiologist: SUNNI Blood Loss(fluid mgmt) 1500ML Surgeon Janee Ramirez [facility] KVNG AND ROSY Implant CLIPS Complications & Mgmt NONE Additional Remarks H AND P [id number] Date 11/18/24 Time 14:22 Visit Coding OBGYN Date of Service: November 18, 2024 Billing Provider: JANEE RAMIREZ DO BLACK AND WHITE PRINTER OPERATOR Common Visit Codes: [id number] INP/OBS CARE(HIGH) BLACK AND WHITE PRINTER OPERATOR Procedure Codes: [id number] DELIVERY ONLY JANEE RAMIREZ DO November 18, 2024 14:26
--- NOTE | 2024-11-18 14:30 | DVHPN2 ---
Chief Complaints Patient reports: No new complaints Nursing reports: No new complaints Objective Medications Current Medications Medications (Trade) Dose Ordered Sig/Marshal Route PRN Reason Start Time Stop Time Status Last Admin Diphenhydramine HCl (Benadryl Injection) 25 mg Q4HP PRN IV FOR ITCHING 11/18/24 13:30 Hydralazine HCl (Apresoline Injection) 5 mg Q10M PRN IV SBP>160 11/18/24 13:30 11/18/24 14:21 Hydromorphone HCl (Dilaudid Injection) 0.5 mg Q15M PRN IV SEVERE PAIN (7-10 PAIN SCALE) 11/18/24 13:30 11/18/24 16:00 Ondansetron HCl (Zofran) 4 mg Q4HP PRN IV NAUSEA / VOMITING 11/18/24 13:30 Piperacillin Sod/ Tazobactam Sod 100 ml @ 25 mls/hr Q6HR IV 11/18/24 18:00 UNV Lungs: Normal Cardiovascular: Normal Abdominal: Soft Extremities: Normal Others VAG NO BLEEDING NOTED,FIRM UTERUS Studies Laboratory Tests 11/18/24 13:20 11/17/24 08:36 Test 11/17/24 08:36 Range/Units Serum Glucose 77 74-106 mg/dL Ass/Plan Assessment S/P PCS Plan SUPPORTIVE CARE CBC AT 8PM Visit Coding OBGYN Date of Service: November 18, 2024 Billing Provider: ALONZO GUERRERO DO CUT PRESSMAN Common Visit Codes: [id number] INP/OBS CARE(HIGH) ALONZO GUERRERO DO November 18, 2024 14:30
[2024-11-18] MEDS ORDERED: PIPERACILLIN-TAZOB 3.375GM 100 ML IV SCH (15:00)
[2024-11-18] MEDS: LACT. RINGERS/OXYTOCIN 20UNITS 500 ML IV ONE ×2 (17:17→17:18)
[2024-11-18] MEDS: LIDOCAINE 2%HCL (LOCAL ANESTH.) INJ 20ML MDV IJ PRN (17:17)
[2024-11-18] MEDS: LIDOCAINE HCL 2 %PF INJ 10ML AMP IJ ONE ×2 (17:18)
[2024-11-18] MEDS: ePHEDrine SULFATE 50 MG/ML AMP IV ONE (17:18)
[2024-11-18] MEDS: NALOXONE HCL 0.4 MG/ML VIAL IV ONE (17:18)
[2024-11-18] MEDS: PIPERACILLIN-TAZOB 3.375GM 100 ML IV SCH (18:00)
[2024-11-18 20:13] LABS: Hematocrit 22.6 % (36.0-46.0); Mean Corpuscular Hemoglobin 32.4 pg (28.0-32.0); Mean Corpuscular Hgb Conc. 35.2 g/dL (32.0-36.0); Platelet Count (auto) 161 10^3/uL (140-450); Red Blood Cells 2.46 10^6/uL (4.0-5.20); Red Cell Distribution Width 13.4 % (11.8-14.3); White Blood Cell 28.2 10^3/uL (4.4-10.8)
[2024-11-18 20:16] LABS: Basophils % (manual) 0 (0.0-2.0); Blast Cells 0; Eosinophils % (manual) 0 (0-7); Metamyelocytes % 0; Myelocytes % 0; Promyelocytes % 0; Reactive Lymphocytes 0
[2024-11-18] MEDS: LACTATED RINGER'S 1,000 ML IV SCH (20:32)
[2024-11-18 21:01] LABS: Band Neutrophils % (manual) 8; Lymphocytes % (manual) 4 (10.0-50.0); Monocytes % (manual) 4 (0-12); Platelet Estimate Adequate; RBC Morphology Normal
[2024-11-18] MEDS: ACETAMINOPHEN IV 1000 MG/100ML (10MG/ML) IV PRN (23:58)
[2024-11-19] VITALS (23 sets, daily range): BP systolic 86–109; BP diastolic 44–72; PULSE 81–109; RESP 14–20; TEMP 97.7–98.3; O2SAT 95–100
--- NOTE | 2024-11-19 00:13 | DVHPN2 ---
Progress Note Date Seen: November 19, 2024 Subjective S: bleeding is less, advancing diet as tolerated, denies lightheaded/dizziness, pain well controlled with medications, del valle catheter in place, no flatus/BM yet, has not ambulated yet, formula/ vital signs Vital Sign Date Time Temp Pulse Resp B/P (MAP) Pulse Ox O2 Delivery O2 Flow Rate FiO2 11/18/24 23:00 108 16 99 11/18/24 19:00 99.2 99.2 11/18/24 13:51 131/81 (98) 11/18/24 13:36 Room Air 11/18/24 13:36 100 11/18/24 13:21 7.0 Total Intake and Output 11/18/24 11/18/24 11/19/24 15:00 23:00 07:00 Intake Total 70 ml Output Total 75 ml 375 ml Balance -5 ml -375 ml medications Current Medications Medications Dose Ordered Sig/Marshal Route Start Time Stop Time Status Last Admin Dose Admin Lexy Souza 1 pad PRN PRN TOP 11/17/24 07:30 11/17/24 10:01 1 PAD Sodium Lauryl Sulfate 240 ml PRN PRN TOP 11/17/24 07:30 11/17/24 10:01 240 ML Benzocaine 1 applic PRN PRN TOP 11/17/24 07:30 11/17/24 10:01 1 APPLIC Diphenhydramine HCl 25 mg Q4HP PRN IV 11/18/24 13:30 Ondansetron HCl 4 mg Q4HP PRN IV 11/18/24 13:30 Acetaminophen 1,000 mg Q8HPRN PRN IV 11/18/24 16:15 11/19/24 14:01 11/18/24 23:58 1,000 MG Piperacillin Sod/ Tazobactam Sod 100 ml @ 25 mls/hr Q8H IV 11/18/24 18:00 11/18/24 18:00 25 MLS/HR Lactated Ringer's 1,000 ml @ 125 mls/hr Q8H IV 11/18/24 20:30 11/18/24 20:32 125 MLS/HR laboratory and microbiology Laboratory Tests 11/18/24 19:51 11/17/24 08:36 Test 11/17/24 08:36 Range/Units Serum Glucose 77 74-106 mg/dL Objective O: VSS Chest: heart sounds normal and lung sounds clear bilaterally Abd: soft, non-tender, fundus at U/firm/midline, active bowel sounds, no rebound or guarding Incision: sylke dressing open to air, clean/dry/intact Perineum: edema noted Ext: Non-tender, No edema, 2+ BLE DTRs Lochia: minimal See lab results Problems(with codes): (1) Precipitous drop in hematocrit (2) PPH ( hemorrhage) (3) S/P primary low transverse Assessment/Plan A/P: 29yo now POD#1 s/p Primary -Continue with routine post-op PP care -Continue IV zosyn -RN to apply ice pack and sand bag to perineum Plan discussed with: Patient, Spouse, Other (family) Visit Coding OBGYN Date of Service: November 19, 2024 Billing Provider: KENDY VERDUZCO CNM BOOT LACE CUTTER MACHINE Common Visit Codes: [id number] INP/OBS CARE(HIGH) KENDY VERDUZCO CNM November 19, 2024 00:13
[2024-11-19 07:47] LABS: Basophils # (auto) 0.1 10 ^3/uL (0-0.2); Eosinophils # (auto) 0 10 ^3/uL (0-0.8); Mean Corpuscular Hgb Conc. 33.8 g/dL (32.0-36.0); Monocytes # (auto) 1.2 10 ^3/uL (0-1.3); Nucleated Red Blood Cells % 0.1 %; Red Blood Cells 2.14 10^6/uL (4.0-5.20)
[2024-11-19 07:51] LABS: Basophils % (auto) 0.2 % (0.0-2.0); Hematocrit 19.9 % (36.0-46.0); Lymphocytes # (auto) 1.8 10 ^3/uL (0.4-5.4); Lymphocytes % (auto) 7.9 % (10.0-50.0); Mean Corpuscular Hemoglobin 31.5 pg (28.0-32.0); Mean Corpuscular Volume 93.3 fL (80.0-100.0); Monocytes % (auto) 5.3 % (0.0-12.0); Neutrophils # (auto) 19.7 10 ^3/uL (1.6-8.6); Neutrophils % (auto) 86.6 % (37.0-80.0); Platelet Count (auto) 158 10^3/uL (140-450); Red Cell Distribution Width 13.9 % (11.8-14.3); White Blood Cell 22.7 10^3/uL (4.4-10.8)
[2024-11-19 07:55] LABS: Hemoglobin 6.7 g/dL (12.2-16.2)
[2024-11-19 08:34] LABS: Platelet Estimate Adequate
--- NOTE | 2024-11-19 12:32 | DVHPN2 ---
Chief Complaints Patient reports: No new complaints Nursing reports: No new complaints Objective Vitals Vital Signs Date Time Temp Pulse Resp B/P (MAP) Pulse Ox O2 Delivery O2 Flow Rate FiO2 11/19/24 12:28 97.8 90 20 101/58 97.8 11/19/24 11:00 98 11/19/24 07:00 Room Air 0.0 11/18/24 13:36 100 Medications Current Medications Medications (Trade) Dose Ordered Sig/Marshal Route PRN Reason Start Time Stop Time Status Last Admin Acetaminophen (Ofirmev) 1,000 mg Q8HPRN PRN IV MODERATE PAIN (4-6 PAIN SCALE) 11/18/24 16:15 11/19/24 14:01 11/19/24 08:16 Diphenhydramine HCl (Benadryl Injection) 25 mg Q4HP PRN IV FOR ITCHING 11/18/24 13:30 Lactated Ringer's 1,000 ml @ 125 mls/hr Q8H IV 11/18/24 20:30 11/19/24 05:46 Ondansetron HCl (Zofran) 4 mg Q4HP PRN IV NAUSEA / VOMITING 11/18/24 13:30 Piperacillin Sod/ Tazobactam Sod 100 ml @ 25 mls/hr Q8H IV 11/18/24 18:00 11/19/24 09:59 Neck: Normal Lungs: Normal Cardiovascular: Normal Abdominal: Soft Extremities: Normal Studies Laboratory Tests 11/19/24 06:12 11/17/24 08:36 Test 11/17/24 08:36 Range/Units Serum Glucose 77 74-106 mg/dL Ass/Plan Assessment S/P PCS anemia Plan supportive care transfuse 2uprbc Visit Coding OBGYN Date of Service: November 19, 2024 Billing Provider: ALONZO GUERRERO DO REINFORCED CONCRETE INSPECTOR Common Visit Codes: [id number] INP/OBS CARE(HIGH) ALONZO GUERRERO DO November 19, 2024 12:32
[2024-11-19] MEDS ORDERED: HYDROcodone-ACET 5/325MG TAB PO PRN (13:15)
[2024-11-19] MEDS: HYDROcodone-ACET 5/325MG TAB PO PRN (15:26)
[2024-11-19] MEDS: SIMETHICONE 80 MG CHEWABLE TABLET PO SCH (17:39)
[2024-11-19 18:31] LABS: Basophils # (auto) 0.1 10 ^3/uL (0-0.2); Basophils % (auto) 0.3 % (0.0-2.0); Eosinophils # (auto) 0 10 ^3/uL (0-0.8); Hematocrit 32.1 % (36.0-46.0); Hemoglobin 10.9 g/dL (12.2-16.2); Lymphocytes # (auto) 1.4 10 ^3/uL (0.4-5.4); Mean Corpuscular Hemoglobin 30.7 pg (28.0-32.0); Mean Corpuscular Hgb Conc. 33.9 g/dL (32.0-36.0); Mean Corpuscular Volume 90.6 fL (80.0-100.0); Monocytes # (auto) 0.9 10 ^3/uL (0-1.3); Monocytes % (auto) 3.9 % (0.0-12.0); Neutrophils # (auto) 21.4 10 ^3/uL (1.6-8.6); Neutrophils % (auto) 89.8 % (37.0-80.0); Nucleated Red Blood Cells % 0.1 %; Platelet Count (auto) 154 10^3/uL (140-450); Red Blood Cells 3.55 10^6/uL (4.0-5.20); White Blood Cell 23.8 10^3/uL (4.4-10.8)
[2024-11-19] MEDS: IBUPROFEN 800 MG TAB PO PRN (19:36)
[2024-11-19] MEDS: DOCUSATE SOD 100 MG CAP PO SCH (23:48)
[2024-11-20] VITALS (7 sets, daily range): BP systolic 101–117; BP diastolic 68–80; PULSE 78–84; RESP 16–20; TEMP 97.7–98.3; O2SAT 95–100
--- NOTE | 2024-11-20 05:34 | DVHPN2 ---
Progress Note Date Seen: November 20, 2024 Subjective S: Lochia minimal. Regular diet well tolerated. Ambulating and voiding well w/o feeling dizzy or lightheaded. Pain relieved with analgesics. Passing flatus but no BM yet. and formula feeding. Reports areola bruising /pain with use of breast pump vital signs Vital Sign Date Time Temp Pulse Resp B/P (MAP) Pulse Ox O2 Delivery O2 Flow Rate FiO2 11/20/24 03:15 98.3 80 18 107/68 (81) 96 98.3 11/19/24 19:00 Room Air 11/19/24 07:00 0.0 11/18/24 13:36 100 Total Intake and Output 11/19/24 11/19/24 11/20/24 15:00 23:00 07:00 Intake Total 2000 ml 1000 ml Output Total 1680 ml 1400 ml 1100 ml Balance 320 ml -400 ml -1100 ml medications Current Medications Medications Dose Ordered Sig/Marshal Route Start Time Stop Time Status Last Admin Dose Admin Lexy Souza 1 pad PRN PRN TOP 11/17/24 07:30 11/17/24 10:01 1 PAD Sodium Lauryl Sulfate 240 ml PRN PRN TOP 11/17/24 07:30 11/17/24 10:01 240 ML Benzocaine 1 applic PRN PRN TOP 11/17/24 07:30 11/17/24 10:01 1 APPLIC Diphenhydramine HCl 25 mg Q4HP PRN IV 11/18/24 13:30 Ondansetron HCl 4 mg Q4HP PRN IV 11/18/24 13:30 Piperacillin Sod/ Tazobactam Sod 100 ml @ 25 mls/hr Q8H IV 11/18/24 18:00 11/20/24 03:07 25 MLS/HR Lactated Ringer's 1,000 ml @ 125 mls/hr Q8H IV 11/18/24 20:30 11/19/24 05:46 125 MLS/HR Docusate Sodium 100 mg Q12HR PO 11/19/24 22:00 11/19/24 23:48 100 MG Dimethicone 80 mg QID PO 11/19/24 18:00 11/19/24 23:48 80 MG Ibuprofen 800 mg Q8HP PRN PO 11/19/24 13:15 11/19/24 19:36 800 MG Acetaminophen/ Hydrocodone Bitart 1 tab Q4HPRN PRN PO 11/19/24 13:15 Acetaminophen/ Hydrocodone Bitart 2 tab Q4HPRN PRN PO 11/19/24 13:15 11/19/24 15:26 2 TAB laboratory and microbiology Laboratory Tests 11/19/24 18:17 11/17/24 08:36 Test 11/17/24 08:36 Range/Units Serum Glucose 77 74-106 mg/dL Objective O: A&O x3 NAD. Afebrile, VSS Chest: heart and lung sounds normal. Breasts: Nipples intact w/o cracks Abdomen: Bowel gas, normal BS, soft, non-tender, no rebound or guarding, fundus firm @ U-1, Lower abdominal Incision site with Sylke dressing on, open to fresh air same clean, dry and intact. No edema, erythema or induration Extremities: no edema or tenderness Lochia - minimal Assessment/Plan A/P: 29yo now Post operative & ppd # s/p Primary Section doing well. PPH, PP Anemia secondary to PPH s/p Blood transfusion - 2units PRBC Blood Type: O Rh: Positive Breast feeding and Formula feeding Rubella Immune Pain control with oral medications Bowel regimen: Increase fluid intake and fiber in diet, Laxative PRN Plan discussed with: Patient, Spouse, Other (family) Visit Coding OBGYN Date of Service: November 20, 2024 Billing Provider: LONRE POLLOCK CNM HOME OFFICE REPRESENTATIVE Common Visit Codes: [id number] INP/OBS CARE(HIGH) LORNE POLLOCK CNM November 20, 2024 05:34
[2024-11-20 06:17] LABS: Hematocrit 30.5 % (36.0-46.0); Hemoglobin 10.4 g/dL (12.2-16.2); Mean Corpuscular Hemoglobin 30.9 pg (28.0-32.0); Mean Corpuscular Hgb Conc. 34.2 g/dL (32.0-36.0); Mean Corpuscular Volume 90.5 fL (80.0-100.0); Platelet Count (auto) 148 10^3/uL (140-450); Red Blood Cells 3.37 10^6/uL (4.0-5.20); Red Cell Distribution Width 13.9 % (11.8-14.3); White Blood Cell 21.2 10^3/uL (4.4-10.8)
[2024-11-20 06:41] LABS: Band Neutrophils % (manual) 0; Basophils % (manual) 0 (0.0-2.0); Blast Cells 0; Eosinophils % (manual) 0 (0-7); Metamyelocytes % 0; Myelocytes % 0; Promyelocytes % 0; Reactive Lymphocytes 0
--- NOTE | 2024-11-20 07:14 | DVHPN2 ---
Chief Complaints Patient reports: No new complaints Nursing reports: No new complaints Objective Vitals Vital Signs Date Time Temp Pulse Resp B/P (MAP) Pulse Ox O2 Delivery O2 Flow Rate FiO2 11/20/24 03:15 98.3 80 18 107/68 (81) 96 98.3 11/19/24 19:00 Room Air 11/19/24 07:00 0.0 11/18/24 13:36 100 Medications Current Medications Medications (Trade) Dose Ordered Sig/Marshal Route PRN Reason Start Time Stop Time Status Last Admin Acetaminophen/ Hydrocodone Bitart ([place] 5/325MG Tab) 1 tab Q4HPRN PRN PO FOR PAIN 1-6 11/19/24 13:15 Acetaminophen/ Hydrocodone Bitart ([place] 5/325MG Tab) 2 tab Q4HPRN PRN PO FOR PAIN 7-10 11/19/24 13:15 11/19/24 15:26 Dimethicone (Mylicon Tab) 80 mg QID PO 11/19/24 18:00 11/20/24 06:14 Docusate Sodium (Colace Capsule) 100 mg Q12HR PO 11/19/24 22:00 11/19/24 23:48 Ibuprofen (Motrin Tablet) 800 mg Q8HP PRN PO BREAKTHROUGH PAIN 11/19/24 13:15 11/19/24 19:36 General: Normal Neck: Normal Lungs: Normal Cardiovascular: Normal Abdominal: Soft Extremities: Normal Studies Laboratory Tests 11/20/24 05:58 11/17/24 08:36 Test 11/17/24 08:36 Range/Units Serum Glucose 77 74-106 mg/dL Ass/Plan Assessment S/P PCS anemia Plan supportive care Visit Coding OBGYN Date of Service: November 20, 2024 Billing Provider: ALONZO GUERRERO DO COMMANDING OFFICER TRAFFIC DIVISION Common Visit Codes: [id number] INP/OBS CARE(HIGH) ALONZO GUERRERO DO November 20, 2024 07:14
[2024-11-20 08:38] LABS: Lymphocytes % (manual) 6 (10.0-50.0); Monocytes % (manual) 4 (0-12)
[2024-11-20 08:40] LABS: Large Platelets FEW; Platelet Estimate Adequate
[2024-11-20] MEDS: TETANUS-DIPTH-ACEL PERTUSSIS 0.5ML SYR Tdap IM ONE (13:00)
[2024-11-20] MEDS ORDERED: CEPH500T PO (15:06)
[2024-11-20] MEDS ORDERED: HYDR-4072 PO (15:06)
[2024-11-20] MEDS ORDERED: ZOFR4T PO (15:06)
[2024-11-20] MEDS ORDERED: IBUP-1456 PO (15:06)
[2024-11-21 03:00] VITALS: BP 110/61; PULSE 79; RESP 17; TEMP 98.6; O2SAT 98
--- NOTE | 2024-11-21 04:00 | DVHPN2 ---
Progress Note Date Seen: November 21, 2024 Subjective S: Lochia minimal. Regular diet well tolerated. Ambulating and voiding well w/o feeling dizzy or lightheaded. Pain relieved with analgesics. Passing flatus but no BM yet. and formula -feeding w/o problem vital signs Vital Sign Date Time Temp Pulse Resp B/P (MAP) Pulse Ox O2 Delivery O2 Flow Rate FiO2 11/20/24 23:05 98.2 81 18 117/80 (92) 100 98.2 11/20/24 19:30 Room Air 11/20/24 07:00 0.0 medications Current Medications Medications Dose Ordered Sig/Marshal Route Start Time Stop Time Status Last Admin Dose Admin Lexy Libby 1 pad PRN PRN TOP 11/17/24 07:30 11/17/24 10:01 1 PAD Sodium Lauryl Sulfate 240 ml PRN PRN TOP 11/17/24 07:30 11/17/24 10:01 240 ML Benzocaine 1 applic PRN PRN TOP 11/17/24 07:30 11/17/24 10:01 1 APPLIC Diphenhydramine HCl 25 mg Q4HP PRN IV 11/18/24 13:30 Ondansetron HCl 4 mg Q4HP PRN IV 11/18/24 13:30 Piperacillin Sod/ Tazobactam Sod 100 ml @ 25 mls/hr Q8H IV 11/18/24 18:00 11/20/24 19:09 25 MLS/HR Lactated Ringer's 1,000 ml @ 125 mls/hr Q8H IV 11/18/24 20:30 11/20/24 17:24 125 MLS/HR Docusate Sodium 100 mg Q12HR PO 11/19/24 22:00 11/20/24 23:09 100 MG Dimethicone 80 mg QID PO 11/19/24 18:00 11/20/24 23:09 80 MG Ibuprofen 800 mg Q8HP PRN PO 11/19/24 13:15 11/20/24 23:10 800 MG Acetaminophen/ Hydrocodone Bitart 1 tab Q4HPRN PRN PO 11/19/24 13:15 Acetaminophen/ Hydrocodone Bitart 2 tab Q4HPRN PRN PO 11/19/24 13:15 11/20/24 15:54 2 TAB laboratory and microbiology Laboratory Tests 11/20/24 05:58 11/17/24 08:36 Test 11/17/24 08:36 Range/Units Serum Glucose 77 74-106 mg/dL Objective O: A&O x3 NAD. Afebrile, VSS Chest: heart and lung sounds normal. Breasts: Nipples intact w/o cracks or soreness Abdomen: normal BS, soft, non-tender, no rebound or guarding, fundus firm @ U- 1, Lower abdominal Incision site with Sylke on, open to fresh air same clean, dry and intact. No edema, erythema or induration Extremities: no edema or tenderness Lochia - minimal Assessment/Plan A/P: 29yo now Post operative & ppd #3 s/p Primary Section, stable Anemia Blood Type: O Rh: Positive Breast feeding and Formula feeding Rubella Immune Pain control with oral medications Bowel regimen: Increase fluid intake and fiber in diet, ambulate more. Laxative PRN PP BCM Plan: undecided Plan discussed with: Patient, Spouse, Other (family) Visit Coding OBGYN Date of Service: November 21, 2024 Billing Provider: LORNE POLLOCK CNM CHRISTMAS TREE FARM WORKER Common Visit Codes: [id number] INP/OBS CARE(HIGH) LORNE POLLOCK CNM November 21, 2024 04:00
[2024-11-21 06:49] VITALS: BP 106/72; PULSE 72; RESP 16; TEMP 98.1; O2SAT 96
[2024-11-21 07:45] LABS: Basophils # (auto) 0 10 ^3/uL (0-0.2); Basophils % (auto) 0.2 % (0.0-2.0); Eosinophils # (auto) 0.2 10 ^3/uL (0-0.8); Eosinophils % (auto) 1.3 % (0.0-7.0); Hematocrit 33.1 % (36.0-46.0); Hemoglobin 11.4 g/dL (12.2-16.2); Lymphocytes # (auto) 1.7 10 ^3/uL (0.4-5.4); Lymphocytes % (auto) 10.2 % (10.0-50.0); Mean Corpuscular Hemoglobin 31.3 pg (28.0-32.0); Mean Corpuscular Hgb Conc. 34.3 g/dL (32.0-36.0); Mean Corpuscular Volume 91.3 fL (80.0-100.0); Monocytes # (auto) 0.4 10 ^3/uL (0-1.3); Monocytes % (auto) 2.4 % (0.0-12.0); Neutrophils # (auto) 14.4 10 ^3/uL (1.6-8.6); Neutrophils % (auto) 85.9 % (37.0-80.0); Nucleated Red Blood Cells % 0.2 %; Platelet Count (auto) 219 10^3/uL (140-450); Red Blood Cells 3.63 10^6/uL (4.0-5.20); Red Cell Distribution Width 14.1 % (11.8-14.3); White Blood Cell 16.8 10^3/uL (4.4-10.8)
[2024-11-21 11:00] VITALS: BP 110/73; PULSE 77; RESP 16; TEMP 98.1; O2SAT 96
[2024-11-21 15:00] VITALS: BP 113/66; PULSE 87; RESP 16; TEMP 98; O2SAT 98
--- NOTE | 2024-11-21 17:36 | DVHPN2 ---
Chief Complaints Patient reports: No new complaints, Feels better Nursing reports: No new complaints Objective Vitals Vital Signs Date Time Temp Pulse Resp B/P (MAP) Pulse Ox O2 Delivery O2 Flow Rate FiO2 11/21/24 15:00 98.0 87 16 113/66 (82) 98 98.0 11/21/24 06:48 Room Air 11/20/24 07:00 0.0 General: Normal Neck: Normal Lungs: Normal Cardiovascular: Normal Abdominal: Soft Extremities: Normal Studies Laboratory Tests 11/21/24 07:15 11/17/24 08:36 Test 11/17/24 08:36 Range/Units Serum Glucose 77 74-106 mg/dL Ass/Plan Assessment S/P PCS anemia RESOLVED Plan SUPPORTIVE CARE MAYBE DC TONIGHT IF WBC IS DOWN Visit Coding OBGYN Date of Service: November 21, 2024 Billing Provider: ALONZO GUERRERO DO [employer] FINISHER Common Visit Codes: [id number] INP/OBS CARE(HIGH) ALONZO GUERRERO DO November 21, 2024 17:36
[2024-11-21 18:17] LABS: Basophils # (auto) 0 10 ^3/uL (0-0.2); Basophils % (auto) 0.2 % (0.0-2.0); Eosinophils # (auto) 0.3 10 ^3/uL (0-0.8); Eosinophils % (auto) 2.1 % (0.0-7.0); Hematocrit 30.8 % (36.0-46.0); Hemoglobin 10.5 g/dL (12.2-16.2); Lymphocytes # (auto) 1.7 10 ^3/uL (0.4-5.4); Lymphocytes % (auto) 13.4 % (10.0-50.0); Mean Corpuscular Hgb Conc. 33.9 g/dL (32.0-36.0); Mean Corpuscular Volume 91.4 fL (80.0-100.0); Monocytes # (auto) 0.5 10 ^3/uL (0-1.3); Monocytes % (auto) 4.1 % (0.0-12.0); Neutrophils # (auto) 9.9 10 ^3/uL (1.6-8.6); Neutrophils % (auto) 80.2 % (37.0-80.0); Nucleated Red Blood Cells % 0.4 %; Platelet Count (auto) 233 10^3/uL (140-450); Red Blood Cells 3.37 10^6/uL (4.0-5.20); Red Cell Distribution Width 14.4 % (11.8-14.3); White Blood Cell 12.3 10^3/uL (4.4-10.8)
[2024-11-21 19:10] VITALS: BP 117/4; PULSE 78; RESP 18; TEMP 98.1; O2SAT 9
--- NOTE | 2024-11-22 08:05 | DVHDS2 ---
Obstetrics Discharge Summary Obstetrics Discharge Summary Date of Admission: November 17, 2024 Date of Discharge: November 21, 2024 Reason For Admission: Induction of Labor Procedures: NST Intrapartum Procedures: (Low Cervical Transverse) Operative Complicat: None Discharge Diagnosis: Term -Delivered Discharge Information: Activity (Other), Diet (Routine), Medications (Name:), Instructions (Routine), Discharge to (Home), Discarge date (-) Visit Coding OBGYN Date of Service: November 21, 2024 Billing Provider: ALONZO GUERRERO DO CHEMISTRY TECHNICAL OFFICER Common Visit Codes: [id number] INP/OBS CARE(LOW), 62217-YKG/OBS DISCH DAY >30MIN ALONZO GUERRERO DO November 22, 2024 08:05
== END 2024-11-21 20:09 | disposition home or self-care (01) | DRG 540 ==
LOC: PREOBSVTOIN 06:44 → LDRP 07:12
PROVIDERS: ADMIT Obstetrics & Gynecology; ATTEND Obstetrics & Gynecology
PROC: 3E0DXGC Introduction of Other Therapeutic Substance into Mouth and Pharynx, External Approach (ICD-10-PCS; 2024-11-17)
PROC: 3E033VJ Introduction of Other Hormone into Peripheral Vein, Percutaneous Approach (ICD-10-PCS; 2024-11-18)
PROC: 10D00Z1 Extraction of Products of Conception, Low, Open Approach (ICD-10-PCS; principal; 2024-11-18 11:55)
PROC: 30233N1 Transfusion of Nonautologous Red Blood Cells into Peripheral Vein, Percutaneous Approach (ICD-10-PCS; 2024-11-19)
DX: O33.9 Maternal care for disproportion, unspecified (principal); O72.1 Other immediate postpartum hemorrhage; O62.1 Secondary uterine inertia; D64.9 Anemia, unspecified; O99.824 Streptococcus B carrier state complicating childbirth; O90.81 Anemia of the puerperium; Z37.0 Single live birth; Z3A.40 40 weeks gestation of pregnancy; Z28.21 Immunization not carried out because of patient refusal
CPT/HCPCS: 36415; 36430; 59025; 62282; 76805; 80053; 80307; 81001; 81002; 85007; 85025; 85027; 85610; 85730; 86780; 86850; 86900; 86901; 86920; 94760; 94762; 96360; 96361; 96365; 96366; G0378; J0131; J2250; J2540; J2543; J2590; J3490; J7060